=== PATIENT | male | born 1990 | race Caucasian/White ===

== ENCOUNTER 2020-02-29 13:20 | Emergency (ER) | payer OTHER, SELFPAY ==
[~2020-02-29] VITALS: Ht 177.8 cm; Wt 83.9 kg
[2020-02-29 13:22] VITALS: BP 112/56
--- NOTE | 2020-02-29 13:30 | NUR ---
C/O COUGH X 3 DAYS, FEVER X YESTERDAY. 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
--- NOTE | 2020-02-29 14:06 | NUR ---
COVID SWAB SENT TO LAB
[2020-02-29] MEDS ORDERED: predniSONE 20 MG TAB PO ONE (14:40)
--- NOTE | 2020-02-29 14:45 | NUR ---
PT AMBULATED TO BED 2.
[2020-02-29] MEDS ORDERED: ALBUTEROL SULFATE/IPRATROPIU 3 ML SOL IH ONE (14:55)
--- NOTE | 2020-02-29 15:06 | NUR ---
ADMINISTERED [facility] ORDERED ENCOURAGED PATIENT FOR INTERMITTENT DEEP BREATHING DURING THERAPY
--- NOTE | 2020-02-29 15:14 | NUR ---
Rosa barney in [facility] - 02/29/20 at 1514 by MEDJUANPABLO TEMP 99.6, DUKE ESQUIVEL AWARE
[2020-02-29 15:28] VITALS: BP 112/56
--- NOTE | 2020-02-29 15:28 | NUR ---
Patient discharged with v/s stable. Written and verbal after care instructions about covid19 and acute bronchitis given and explained. Patient alert, oriented and verbalized understanding of instructions. Ambulatory with steady gait. All questions addressed prior to discharge. ID band removed. Patient advised to follow up with PMD. Rx of azithromycin, albuterol, naprosyn, prednisone given. Patient educated on indication of medication including possible reaction and side effects. Opportunity to ask questions provided and answered.
== END 2020-02-29 15:28 | disposition home or self-care (01) ==
LOC: MED 13:20 → EEVIPCON 13:20 → MED 15:28
DX: J20.9 Acute bronchitis, unspecified (principal); Z20.828 Contact with and (suspected) exposure to other viral communicable diseases
CPT/HCPCS: 71045; 94640; 99284; J7512; Q0092; U0003